=== PATIENT | female | born 1965 | race Caucasian/White ===

== ENCOUNTER 2017-08-29 11:28 | Emergency (ER) | payer OTHER ==
[~2017-08-29] VITALS: Ht 152.4 cm; Wt 68.0 kg
[2017-08-29] MEDS ORDERED: CLARITIN10 MG PO (12:12)
[2017-08-29] MEDS ORDERED: ESTRACE2 MG PO (12:12)
[2017-08-29] MEDS ORDERED: MYRBETRIQ25 MG PO (12:14)
[2017-08-29] MEDS ORDERED: OXYCODONE HCL5 MG PO (12:14)
[2017-08-29] MEDS ORDERED: NEURONTIN300 MG PO (12:14)
[2017-08-29] MEDS ORDERED: ZANAFLEX4 M1 PO (12:15)
[2017-08-29] MEDS ORDERED: DICYCLOMINE HCL10 MG PO (12:15)
[2017-08-29] MEDS ORDERED: NORTRIPTYLINE H75 MG PO (12:16)
[2017-08-29] MEDS ORDERED: SUMATRIPTAN SU100 MG PO (12:16)
[2017-08-29] MEDS ORDERED: FLOVENT DISKUS50 MCG INH (12:17)
[2017-08-29] MEDS ORDERED: VITAMIN D31000 UNIT PO (12:17)
[2017-08-29] MEDS ORDERED: HALOBETASOL PRO15 G1 TOP (12:18)
[2017-08-29] MEDS ORDERED: NAPROSYN500 MG PO (13:07)
[2017-08-29] MEDS ORDERED: REGLAN10 MG PO (13:07)
== END 2017-08-29 14:41 | disposition home or self-care (01) ==
LOC: ED 11:28
DX: G43.909 Migraine, unspecified, not intractable, without status migrainosus (principal); I10 Essential (primary) hypertension; K21.9 Gastro-esophageal reflux disease without esophagitis; F32.9 Major depressive disorder, single episode, unspecified; Z88.0 Allergy status to penicillin; Z88.2 Allergy status to sulfonamides; Z79.899 Other long term (current) drug therapy; Z79.891 Long term (current) use of opiate analgesic
CPT/HCPCS: 96361; 96374; 96375; 99283; J1200; J1885; J2765; J7030